=== PATIENT | female | born 1940 | race Caucasian/White ===

== ENCOUNTER → 2017-01-16 | Outpatient (REF) ==
[~2017-01-16] MED LIST: ASPIRIN 32325 MG/TAB PO; CALCIUM 600MG+D1 TAB PO; CLARITIN 1010 MG/TAB PO; COZAAR 25MG25 MG/TAB PO; CRANBERRY1 POW PO; MULTI VITAMINS1 TAB PO; NEXIUM 20MG20 MG PO; NORCO 325 MG-51 TAB PO; VITAMIND3 5000 PO; ZOCOR 20MG20 MG PO
== END ==
LOC: ZLAB.WCH 10:27
DX: Z01.89 Encounter for other specified special examinations (principal)

== ENCOUNTER → 2017-08-25 | Outpatient (REF) | LOC: ZLAB.WCH 18:05 | DX: Z01.89 Encounter for other specified special examinations (principal) ==

== ENCOUNTER → 2017-08-31 | Outpatient (REF) | LOC: ZLAB.WCH 15:59 | DX: Z01.89 Encounter for other specified special examinations (principal) ==

== ENCOUNTER → 2017-10-20 | Outpatient (REF) | LOC: ZLAB.WCH 18:08 | DX: Z01.89 Encounter for other specified special examinations (principal) ==